=== PATIENT | female | born 1970 | race Caucasian/White ===

== ENCOUNTER → 2016-11-21 | Outpatient (CLI) | payer OTHER ==
[~2016-11-21] MED LIST: AMT/50 PO; CEPH500C PO; GABA-113 PO; GABA600T PO; LISI-461 PO; PANT40TA PO; PREG1CAP70 PO; RXC5 PO; SULF800T23 PO
--- NOTE | 2016-11-21 08:07 | DIAGNOSTIC IMAGING REPORT ---
CT OF THE LUMBAR SPINE WITHOUT CONTRAST CT DOSE: 1953.47 mGy.cm CLINICAL HISTORY: Low back and leg pain. Lumbar spondylosis. TECHNIQUE: Axial images of the lumbar spine were obtained without IV contrast. Sagittal and coronal reconstructions were viewed. COMPARISON STUDY: Lumbar spine MRI September 15, 2015. FINDINGS: For purposes of numbering on this exam, the L5-S1 disc space is assigned to axial image 346 of 399. Alignment of the lumbar spine is anatomic with the exception of slight rightward curvature. Vertebral body heights are maintained. There is no fracture or suspicious lesion by CT. Paravertebral soft tissues are unremarkable. There is slight asymmetric dilatation of the left collecting system. The central canal and neural foramen are suboptimally assessed by CT. However, mild multilevel disc bulges with moderate facet arthrosis is noted. There is suspected mild multilevel central canal and neural foraminal stenosis which is similar to MRI of September 15, 2015. No disc herniation is identified by CT. No intracanalicular mass or fluid collection is identified although the central canal is suboptimally assessed by CT. IMPRESSION: 1. No lumbar spine fracture or subluxation. 2. Mild multilevel degenerative disc disease and mild to moderate multilevel facet arthrosis of the lumbar spine. 3. Suboptimal evaluation of the central canal and neural foramen by CT but suspected mild multilevel central canal and neural foraminal stenosis. Electronically signed by: Carlos Hernandez M.D. 11/21/2016 8:06 AM Dictated Date/Time: 11/21/2016 7:47 AM
== END | disposition home or self-care (01) ==
LOC: C.CTS 07:16
PROVIDERS: ATTEND Orthopaedic Surgery Orthopaedic Surgery of the Spine
DX: M47.26 Other spondylosis with radiculopathy, lumbar region (principal)

== ENCOUNTER 2017-06-15 16:15 | Emergency (ER) | payer OTHER ==
[~2017-06-15] VITALS: Ht 172.7 cm; Wt 125.6 kg
[~2017-06-15 16:15] MED LIST changes: -CEPH500C PO; -GABA600T PO; -PREG1CAP70 PO; -SULF800T23 PO
[2017-06-15 16:20] VITALS: TEMP 36.7; Ht 172.7 cm; Wt 125.6 kg
[2017-06-15] MEDS ORDERED: GABA600T PO (17:17)
[2017-06-15] MEDS ORDERED: PREG1CAP70 PO (17:17)
--- NOTE | 2017-06-15 17:33 | DIAGNOSTIC IMAGING REPORT ---
RIGHT ANKLE MIN 3 VIEWS ROUTINE, RIGHT FOOT MIN 3 VIEWS ROUTINE CLINICAL HISTORY: ankle pain/swelling, eval fx Right. Right ankle and foot pain. COMPARISON STUDY: None. FINDINGS: Soft tissue swelling within the right ankle. No fracture or dislocation within the ankle or foot. Small plantar and posterior calcaneal spurs. Mild degenerative changes at the talonavicular joint. The Lisfranc joint is well aligned. IMPRESSION: Soft tissue swelling at the right ankle. No fracture or dislocation within the ankle or foot. Electronically signed by: Wyatt Perez M.D. 06/15/2017 5:32 PM Dictated Date/Time: 06/15/2017 5:27 PM
[2017-06-15] MEDS ORDERED: SULFAMETHOXAZOLE/TRIMETHOPRIM DS 800/160MG TAB PO STA (17:35)
[2017-06-15] MEDS ORDERED: CEPHALEXIN MONOHYDRATE 250 MG CAP PO ONE (17:45)
--- NOTE | 2017-06-15 17:46 | EMERGENCY ROOM VISIT NOTE ---
ED Visit Note First contact with patient: 16:45 CHIEF COMPLAINT: Infection of the foot and ankle HISTORY OF PRESENT ILLNESS: This 46-year-old female patient presents to the emergency department complaining of pain, swelling, redness of her right ankle and foot for the past 5 days. The area has become red, warm, and very painful. She does not recall any known injury to the ankle or foot recently. The patient denies fever, chills, nausea, or loss of appetite. Movement of the right ankle is somewhat decreased because of the pain. She has been able to walk on the foot, but the pain is greatly increased with this. She denies any previous injuries to this ankle. The patient's tetanus shot is up to date. REVIEW OF SYSTEMS: A review of systems was performed with positives and pertinent negatives listed in the history of present illness. All other systems were reviewed and are negative. ALLERGIES: Reviewed in chart MEDICATIONS: Reviewed in chart PMH: Hypertension, GERD, arthritis, sciatica with chronic back pain SOCIAL HISTORY: Lives at home. Denies tobacco use, alcohol use, recreational drug use. PHYSICAL EXAM: Vital Signs: Reviewed Nurse's notes, afebrile, vital signs stable. GENERAL: Pleasant and cooperative, in no acute distress, is non toxic in appearance, well-developed, well-nourished. SKIN: The medial right ankle is red, slightly warm, very tender, and moderately swollen. There is no lymphangitic streaking. There is no discharge. There is no fluctuance. There is no induration. There is full range of motion of the ankle, with increased pain with dorsiflexion and eversion HEART: Regular rate and rhythm without murmur, gallop, or rub. LUNGS: Clear to auscultation bilaterally without wheezes, rales , or rhonchi. NEURO: Alert and oriented to person, place, and time. Normal sensation to light and sharp touch. Capillary reflex less than 2 seconds. Peripheral pulses 2 + bilaterally. EMERGENCY DEPARTMENT COURSE: I examined the patient. Differential diagnosis includes ankle sprain, strain, fracture, cellulitis, less likely septic joint. X-ray of the right ankle and foot performed, reviewed by myself and radiologist , no acute fracture, but moderate soft tissue swelling noted. The skin over the medial right ankle is erythematous, very tender, and slightly warm to touch , concerning for possible developing cellulitis. The erythematous area was marked with a skin marker and the patient was treated with antibiotics, Keflex and Bactrim, first doses of these given in the ED. Patient was also given crutches for nonweightbearing on the ankle to allow for healing. Patient was instructed to follow very closely with her PCP, and given strict return precautions should her symptoms worsen in any way, she verbalized understanding. Patient was discharged home in stable condition. Problem List Surgical Problems: (1) H/O cardiac radiofrequency ablation Status: Resolved (2) H/O rhinoplasty Status: Resolved (3) H/O: hysterectomy Status: Resolved (4) History of section Status: Resolved (5) History of gastric bypass Status: Resolved (6) History of tonsillectomy and adenoidectomy Status: Resolved Current/Historical Medications Scheduled Amitriptyline HCl (Amitriptyline HCl), 100 MG PO HS Cephalexin Monohydrate (Keflex), 500 MG PO QID Gabapentin (Neurontin), 600 MG PO TID Lisinopril (Zestril), 10 MG PO DAILY Pantoprazole (Protonix), 40 MG PO DAILY Pregabalin (Lyrica), 150 MG PO TID Sulfa/Trimethoprim (Bactrim Ds 800MG/160MG), 1 TAB PO BID Scheduled PRN Oxycodone HCl (Oxycodone HCl), 5-15 MG PO Q4H PRN for Pain Allergies Coded Allergies: NSAIDs (Unverified Allergy, Mild, GI SYMPTOMS, 10/25/16) Vital Signs Date Time Temp Pulse Resp B/P (MAP) Pulse Ox O2 Delivery O2 Flow Rate FiO2 06/15/17 18:04 77 18 138/83 98 Room Air 06/15/17 16:20 36.7 84 20 144/88 94 Room Air Medications Administered Medications (Trade) Dose Ordered Sig/Anjelica Route Start Time Stop Time Status Last Admin Dose Admin Cephalexin Monohydrate (Keflex Cap) 500 mg NOW ONCE PO 06/15/17 17:45 06/15/17 17:46 DC 06/15/17 18:03 500 MG Trimethoprim/ Sulfamethoxazole (Septra Ds 800/ 160MG Tab) 1 tab NOW STAT PO 06/15/17 17:35 06/15/17 17:38 DC 06/15/17 18:03 1 TAB Departure Information Impression Primary Impression: Cellulitis of right ankle Dispostion Home / Self-Care Condition GOOD Prescriptions Sulfa/Trimethoprim (Bactrim Ds 800MG/160MG) Tab 1 TAB PO BID for 10 Days, #20 TAB Prov: Yvonne Whitfield CRNP 06/15/17 Cephalexin Monohydrate (Keflex) 500 Mg Cap 500 MG PO QID for 10 Days, #40 CAP Prov: Yvonne Whitfield, JOSUE 06/15/17 Referrals Austin Livingston Jr,D.O. (PCP) Patient Instructions ED Dental Abscess Facial Cellulitis, [facility] Additional Instructions You were seen in the Emergency Department for cellulitis (skin infection) of your right ankle/foot. You have been prescribed Keflex and Bactrim to be taken for 10 days. Both of these medications are antibiotics. Stop these medications and contact a medical provider if you were to develop any significant adverse side effects including: wheezing, shortness of breath, passing out, vomiting, or a diffuse rash. Always take antibiotics as directed and COMPLETE the ENTIRE course regardless of the improvement of your symptoms. Look for signs of worsening infection of the wound including: increased pain, swelling, foul discharge, streaking, or fevers/chills/feeling ill. If any of these are noticed you should return to the Emergency Department for further assessment and treatment. You may continue taking your prescribed pain medication for your pain. Take as prescribed. Apply warm compresses to the area to help with pain and also to help improve the infection. Use the crutches to stay off of your right foot for the next several days to allow it to rest and heal. Follow up with your PCP in 1-2 days for recheck, or sooner for worsening symptoms. Follow-up with orthopedics in the next 1-2 weeks for persistent ankle pain symptoms. Return to the emergency department if your symptoms worsen despite treatment course outlined above.
[2017-06-15 18:04] VITALS: BP 138/83; PULSE 77; O2SAT 98
[2017-06-15] MEDS ORDERED: SULF800T23 PO (18:04)
[2017-06-15] MEDS ORDERED: CEPH500C PO (18:04)
== END 2017-06-15 18:26 | disposition home or self-care (01) ==
LOC: C.EDB 16:18 → C.EDD 18:26
DX: L03.115 Cellulitis of right lower limb (principal); I10 Essential (primary) hypertension; K21.9 Gastro-esophageal reflux disease without esophagitis; M19.90 Unspecified osteoarthritis, unspecified site; M54.40 Lumbago with sciatica, unspecified side; G89.29 Other chronic pain; Z90.710 Acquired absence of both cervix and uterus; Z95.1 Presence of aortocoronary bypass graft; Z79.899 Other long term (current) drug therapy